=== PATIENT | female | born 2000 | race Caucasian/White ===

== ENCOUNTER 2021-05-22 01:01 | Outpatient (CLI) | payer OTHER | END 2021-05-22 02:31 | disposition home or self-care (01) | LOC: GENOP 01:01 | PROVIDERS: Obstetrics & Gynecology | DX: O99.891 Other specified diseases and conditions complicating pregnancy (principal); R10.2 Pelvic and perineal pain; M54.50 Low back pain, unspecified; Z3A.35 35 weeks gestation of pregnancy | CPT/HCPCS: 80307; 81001; G0463 ==

== ENCOUNTER 2021-05-25 08:23 | Emergency (ER) | payer OTHER ==
[2021-05-25 08:58] LABS: HEMOGLOBIN 12.3 gm/dl (12.3-15.3); RED BLOOD COUNT 3.88 M/UL (4.00-5.10)
[2021-05-25 09:19] LABS: BUN/CREATININE RATIO 11 (0-10)
== END 2021-05-25 12:20 | disposition home or self-care (01) ==
LOC: ER1 08:23
PROVIDERS: Emergency Medicine
DX: O99.353 Diseases of the nervous system complicating pregnancy, third trimester (principal); R56.9 Unspecified convulsions; O99.891 Other specified diseases and conditions complicating pregnancy; R82.71 Bacteriuria; Z86.19 Personal history of other infectious and parasitic diseases
CPT/HCPCS: 70450; 80053; 80307; 81001; 83615; 83690; 83735; 84550; 85025; 85610; 85730; 93005; 99285

== ENCOUNTER 2021-05-25 12:13 | Outpatient (CLI) | payer OTHER | END 2021-05-25 16:26 | disposition home or self-care (01) | LOC: GENOP 12:13 | DX: O99.891 Other specified diseases and conditions complicating pregnancy (principal); R55 Syncope and collapse; R51.9 Headache, unspecified; O99.323 Drug use complicating pregnancy, third trimester; F15.90 Other stimulant use, unspecified, uncomplicated; O99.333 Smoking (tobacco) complicating pregnancy, third trimester; F17.210 Nicotine dependence, cigarettes, uncomplicated; Z3A.35 35 weeks gestation of pregnancy; Z88.1 Allergy status to other antibiotic agents | CPT/HCPCS: G0463 ==